=== PATIENT | female | born 1975 | race Caucasian/White ===

== ENCOUNTER 2024-01-01 08:35 | Day surgery (SDC) | payer BC, SELFPAY ==
[2024-01-01] VITALS (19 sets, daily range): BP systolic 90–160; BP diastolic 58–97; PULSE 58–93; RESP 12–18; TEMP 36.2–36.6; O2SAT 92–100; BMI 45.6
[2024-01-01] MEDS: SODIUM CHLORIDE 0.9 % (FLUSH) 10 ML SYRINGE IVF (10:51)
--- NOTE | 2024-01-01 12:45 | W.ANESCHARGE ---
Anesthesia Charges Start Date/Time Anesthesia Start Date: 01/01/24 Anesthesia Start Time: 15:27 Stop Date/Time Anesthesia Stop Date: 01/01/24 Anesthesia Stop Time: 16:35
--- NOTE | 2024-01-01 12:45 | W.PM.NB ---
Nerve Block Nerve Block Time Seen by Provider: 14:05 Date Seen: 01/01/24 Type of block requested by surgeon for post-operative analgesia: popliteal Side: left Time out performed: Yes Verification of patient name: Yes Verification of date of : Yes Site marking: site marked Name of person performing procedure: Desmond Continuous monitoring Was continuous monitoring of O2 sat, B/P, youth nutritional monitor, recorded every 15 minutes?: Yes Procedure Checklist: sterile prep, needles and gloves Ultrasound guided. Images saved: Yes Medications given in 5ml increments after negative aspiration: Marcaine %: 0.5 mL: 20 Patient tolerated procedure well: Yes Additional comments: Needle noted adjacent to nerve Block Charges Block Charge (with Pro Fee): Sciatic Nerve Use of Ultrasound Machine for Block: Yes- US Guidance/pain block
[2024-01-01] MEDS: 0.9 % SODIUM CHLORIDE 500 ML 500 ML 100 ML IV (14:05)
[2024-01-01] MEDS: fentaNYL 100 MCG/2 ML inj IVP (14:08)
[2024-01-01] MEDS: MIDAZOLAM HCL 1 MG/ML inj IVP (14:08)
--- NOTE | 2024-01-01 14:18 | SUR.PREOP ---
TIME?OUT:?1405 PT/Omar BARRIOS RN/Roosevelt GREGG MDA?VERIFICATION?OF?SURGICAL?SITE,?PROCEDURE,?AND?CONSENT OBTAINED?PRIOR?TO?INVASIVE?PROCEDURE.
[2024-01-01] MEDS: CLINDAMYCIN 900 MG/50 ML-D5W 900 MG/50 ML PIGGYBACK 100 MG IVPB (15:40)
--- NOTE | 2024-01-01 15:47 | W.ANESCHARGE ---
Anesthesia Charges Start Date/Time Anesthesia Start Date: 01/01/24 Anesthesia Start Time: 15:27 Stop Date/Time Anesthesia Stop Date: 01/01/24 Anesthesia Stop Time: 16:35
[2024-01-01] MEDS: ONDANSETRON 2 MG/ML inj 4 MG IVP (16:52)
--- NOTE | 2024-01-01 17:07 | W.PM.PODPROC ---
Date of Procedure: 01/01/24 Surgeon: Paddy Smith DPM Pre-op Diagnosis: 1. Gastroc equinus left 2. Chronic heel pain left Post-op Diagnosis: 1. Gastroc equinus left 2. Chronic heel pain left Type of Procedure: Gastroc lengthening left Indications: Patient has had ongoing chronic heel pain and Achilles pain without improvement. She has elected to proceed with surgical correction. Reviewed the procedure, recovery, expectation potential complications. These include but are not limited to: Poor wound healing, infection, under correction, over lengthening, continued pain, potential need for future surgery, deep venous thrombosis, pulmonary embolism, complex regional pain syndrome, and possible . She understands risks written consent was obtained. Site marked. Procedure Description: After receiving a popliteal block from Anesthesia patient brought the operating room placed under general anesthesia while on the operating room cart. She was then rolled into a prone position on the operating room table. She was appropriately padded. She was prepped and draped in a sterile fashion. Standard time-out protocol followed. Left limb was exsanguinated the thigh tourniquet inflated. Linear incision was made medial to the midline at the level the medial gastroc muscle terminal end. Incision was carried down through skin subcutaneous tissues. Blunt dissection carried down to the paratenon. Neurovascular structures carefully retracted. Paratenon was incised. Gastroc aponeurosis was easily identified. Starting medial and working lateral the aponeurosis was transected leaving the soleal fibers intact. Once a clean complete release had been achieved an excellent amount of lengthening was obtained. Wound was thoroughly irrigated normal sterile saline. Paratenon was repaired with 4-0 Vicryl. Subcutaneous tissues reapproximated 4-0 Vicryl. The skin closed with 4-0 Prolene. Sterile dressing was applied. Tourniquet was released. She was placed in a well-padded below the knee plaster splint. She was transferred from OR to PACU vital signs stable and vascular status intact. She will be discharged home per same-day surgery protocol. She is given oxycodone for pain. She will follow up in clinic in 3 days. Anesthesia: GETA and regional (Popliteal block) Hemostasis: thigh Estimated blood loss (mL): 2 Specimens: none sent Disposition: PACU
--- NOTE | 2024-01-01 17:16 | SUR.PHASEI ---
patient met discharge criteria per anesthesia
--- NOTE | 2024-01-01 19:22 | PC.NURSE ---
D/C: Pt arrived to the floor, drowsy though alert and oriented at 1707. Vitally stable. Pt denies any nausea or pain. Ice applied to op site. operative leg elevated. Pt ate dinner, tolerated well. DC instruction given to pt and spouse, topics including meds, weight measures, symptoms worsening and follow up. Pt DC at 1907
== END 2024-01-01 19:07 | disposition home or self-care (01) ==
LOC: OR 08:40 → MEDSURG 18:01
PROVIDERS: Visit Provider Podiatrist
PROC: (CPT 27650; principal; 2024-01-01 12:45)
DX: M62.462 Contracture of muscle, left lower leg (principal); G89.29 Other chronic pain; M79.672 Pain in left foot; G89.18 Other acute postprocedural pain
CPT/HCPCS: 27687; 01474; 64445; 76942; A4580; A9270; J0330; J0665; J0736; J2250; J2405; J2704; J3010; J3490; J7030